=== PATIENT | female | born 2000 | race Hispanic/Latino ===

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

== ENCOUNTER 2022-01-14 14:37 | Emergency (ER) | payer OTHER ==
[~2022-01-14] VITALS: Ht 157.5 cm; Wt 63.5 kg
[2022-01-14 15:02] LABS: APPEARANCE,URINE CLOUDY (CLEAR); BILIRUBIN,URINE NEGATIVE (NEGATIVE); COLOR,URINE YELLOW (YELLOW); GLUCOSE, URINE (UA) NEGATIVE (NEGATIVE); KETONES,URINE 15 mg/dL (NEGATIVE); LEUKOCYTE ESTERASE ,URINE MODERATE (NEGATIVE); NITRATE,URINE NEGATIVE (NEGATIVE); OCCULT BLOOD,URINE SMALL (NEGATIVE); PH,URINE 6.5 (5.0-8.0); PROTEIN,URINE 30 mg/dL (NEGATIVE); UROBILINOGEN,URINE 0.2 mg/dL (0.2-1.0)
[2022-01-14 15:04] LABS: HCG,QUALITATIVE URINE NEGATIVE (NEGATIVE)
[2022-01-14] MEDS ORDERED: PHENAZOPYRIDINE HCL 200 MG TABLET PO ONE (15:30)
[2022-01-14] MEDS ORDERED: CEFTRIAXONE 1G VIAL IM ONE (15:30)
[2022-01-14 15:31] LABS: BACTERIA,URINE Moderate /HPF (None Seen); MUCUS,URINE Few LPF (None Seen); SQUAMOUS EPITHELIAL CELL,UR Moderate /HPF (0-2); TRICHOMONAS,URINE Moderate /LPF (None Seen); WBC,URINE 26-50 /HPF (0-1)
[2022-01-14] MEDS ORDERED: PHEN-847 PO (15:36)
[2022-01-14] MEDS ORDERED: CEPH500B PO (15:36)
[2022-01-14] MEDS ORDERED: METR-172 PO (15:39)
[2022-01-14] MEDS ORDERED: LIDOCAINE HCL 1% 10 ML VIAL ONE (16:29)
[2022-01-14 16:37] VITALS: BP 125/70
== END 2022-01-14 16:45 | disposition home or self-care (01) ==
LOC: EDH 14:37
DX: N39.0 Urinary tract infection, site not specified (principal); A59.01 Trichomonal vulvovaginitis; Z79.899 Other long term (current) drug therapy
CPT/HCPCS: 99283; 87088; 81001; 81025; 96372; J0696; J3490

== ENCOUNTER 2022-01-16 10:08 | Emergency (ER) | payer OTHER ==
[~2022-01-16] VITALS: Ht 157.5 cm; Wt 63.5 kg
[~2022-01-16 10:08] MED LIST: CEPH500B PO; METR-172 PO; PHEN-847 PO
[2022-01-16 10:52] LABS: BASOPHILS % (AUTO) 0.4 % (0.0-5.0); EOSINOPHILS % (AUTO) 0.1 % (0.0-8.0); HEMATOCRIT 38.6 % (36-48); LYMPHOCYTES % (AUTO) 15.6 % (21.0-51.0); MEAN CORPUSCULAR HEMOGLOBIN 29.3 pg (27.0-33.0); MEAN CORPUSCULAR HGB CONC 33.4 g/dL (32.0-36.0); MEAN CORPUSCULAR VOLUME 87.7 fL (80-100); MONOCYTES % (AUTO) 8.9 % (3.0-13.0); NEUTROPHILS % (AUTO) 74.8 % (40.0-77.0); PLATELET COUNT (AUTO) 186 K/uL (130-400); WHITE BLOOD COUNT (AUTO) 8.4 K/uL (4.8-10.8)
[2022-01-16 10:53] LABS: APPEARANCE,URINE SL CLOUDY (CLEAR); BILIRUBIN,URINE NEGATIVE (NEGATIVE); COLOR,URINE DARK YELLOW (YELLOW); GLUCOSE, URINE (UA) 100 mg/dL (NEGATIVE); KETONES,URINE 15 mg/dL (NEGATIVE); LEUKOCYTE ESTERASE ,URINE LARGE (NEGATIVE); NITRATE,URINE POSITIVE (NEGATIVE); OCCULT BLOOD,URINE SMALL (NEGATIVE); PROTEIN,URINE 30 mg/dL (NEGATIVE)
[2022-01-16 11:01] LABS: BACTERIA,URINE Moderate /HPF (None Seen); RBC,URINE 26-50 /HPF (0-1); WBC,URINE 51-100 /HPF (0-1)
[2022-01-16 11:02] LABS: CREATININE 0.7 mg/dL (0.5-1.5); POTASSIUM 3.7 mmol/L (3.5-5.1)
[2022-01-16 11:02] LABS: TRICHOMONAS,URINE Few /LPF (None Seen)
[2022-01-16 11:07] LABS: TOTAL PROTEIN, SERUM 7.9 g/dL (6.0-8.3)
[2022-01-16] MEDS ORDERED: DOXY-336 PO (12:59)
[2022-01-16] MEDS ORDERED: NAPR500T6 PO (12:59)
[2022-01-16] MEDS ORDERED: ACET-2079 PO (12:59)
[2022-01-16] MEDS ORDERED: MORPHINE 4 MG SYG IVP ONE (13:00)
[2022-01-16] MEDS ORDERED: 0.9%NACL 1000ML 1,000 ML IV ONE (13:00)
[2022-01-16] MEDS ORDERED: CEFTRIAXONE 500MG VIAL IM SCH (13:00)
[2022-01-16] MEDS ORDERED: AZITHROMYCIN 250 MG TABLET PO ONE (13:00)
[2022-01-16] MEDS ORDERED: ONDANSETRON 4MG INJ IVP ONE (13:00)
[2022-01-16 15:05] VITALS: BP 124/79
== END 2022-01-16 15:26 | disposition home or self-care (01) ==
LOC: EDH 10:08
DX: A59.01 Trichomonal vulvovaginitis (principal); N73.9 Female pelvic inflammatory disease, unspecified; N39.0 Urinary tract infection, site not specified; Z79.1 Long term (current) use of non-steroidal anti-inflammatories (NSAID)
CPT/HCPCS: 99285; 96374; 76856; 96361; 96375; 80053; 85025; 87210; 87797; 87486; 81001; 81025; 36415; 96372; J7030; J2405; J2270; J0696